=== PATIENT | male | born 1990 | race Caucasian/White ===

== ENCOUNTER 2017-02-08 16:08 | Observation (INO) ==
--- NOTE | 2017-02-08 16:26 | Emergency Department Note ---
Disposition Clinical Impression: Smoker, Suicidal ideation, Dysuria, Lesion of ear, Acute anxiety, Cocaine abuse , Marijuana abuse, Benzodiazepine abuse Disposition: Admitted As Inpatient Referrals: NO,PCP [Primary Care Provider] - Forms: ED Satisfaction Letter General Adult HPI - General Chief complaint: ED Psychiatric Symptoms Stated complaint: SI Time Seen by Provider: 02/08/17 16:26 Source: patient Limitations: no limitations - History of Present Illness HPI Narrative: 26-year-old male reports emergency department with concerns for suicidal ideation. The patient describes a history of ADHD and previous treatment for same. He describes multi drug abuse and Suboxone therapy. The patient lost his job today. He became more anxious and voiced suicidal ideation. He came in with his father for evaluation. There is no history of intentional overdose or acute self-injurious behavior. The patient denies any acute physical problems but describes a 10 year history of dysuria. The patient also reports some scaling about the ears which has been also been present chronically. The patient has no acute physical complaints. No chest pain shortness of breath abdominal pain vomiting diarrhea injuries fevers leg swelling or pain or passing out. No troubles walking talking hearing seeing or speaking. No skin rashes no genital swelling or discomfort. No external genital lesions. The patient is been able to void without difficulty. There is no history of headache neck stiffness rash or convulsion. The patient came in today for concerns regarding increasing anxiety and feeling like harming himself. He states he has never seen an ENT for his ears, he has never seen urology for his chronic dysuria, he reports he has been tested for STDs at his testing is been negative. The patient reports he has never seen a psychiatrist or psychologist but was treated for ADHD by his primary care physician years ago. Pain Scale: 0 - Related Data Home Medications Medication Instructions Recorded Confirmed No Known Home Drugs 04/09/16 06/29/16 Allergies Allergy/AdvReac Type Severity Reaction Status Date / Time No Known Allergies Allergy Verified 06/29/16 07:17 All systems ED: reviewed and negative except as stated. Past Medical History - Past Medical History Medical history: Reports: no medical history Surgical history: Reports: orthopedic, other Psychiatric history: Reports: no psych history - Social History Smoking Status: Current every day smoker Smokeless Tobacco Status: No Alcohol use: Reports: occasionally, recent Drug use: Reports: marijuana, prescription drug abuse Physical Exam - General Limitations: no limitations General appearance: alert, in no apparent distress - Head Head exam: atraumatic, normocephalic, normal inspection - Eye Eye exam: Present: normal appearance, PERRL, EOMI - ENT ENT exam: normal oropharynx, mucous membranes moist, TM's normal bilaterally, other (Lichenification and scaling around both ears. Some scabbing is noted, no lilly cellulitic change.) - Neck Neck exam: Present: normal inspection, full ROM, trachea midline. Absent: tenderness - Chest Chest inspection: Present: symmetric chest wall rise. Absent: tenderness - Respiratory Respiratory exam: Present: normal lung sounds bilaterally. Absent: respiratory distress, wheezes, accessory muscle use, prolonged expiratory phase - Cardiovascular Cardiovascular exam: Present: regular rate, normal rhythm, normal heart sounds - Abdominal Exam Abdominal exam: Present: soft, Non-Tender, normal bowel sounds. Absent: tenderness, distention, guarding, rebound, rigidity - Extremities Exam Extremities exam: Present: normal inspection, full ROM, normal capillary refill. Absent: tenderness, pedal edema, joint swelling, calf tenderness - Expanded Lower Extremity Exam Lower leg exam: Absent: Homans' sign Neurovascular/Tendon exam: Present: normal capillary refill. Absent: motor deficit, sensory deficit, tendon deficit, extremity cold to touch, pallor - Back Exam Back exam: Present: normal inspection, full ROM. Absent: tenderness, CVA tenderness (R), CVA tenderness (L), vertebral tenderness - Neurological Exam Neurological exam: Present: alert, oriented X3, CN II-XII intact. Absent: motor sensory deficit - Psychiatric Psychiatric exam: Present: normal affect, normal mood - Skin Skin exam: Present: warm, dry, intact, normal color. Absent: rash, cyanosis, diaphoresis, erythema, pallor, mottled Course Vital Signs Temperature 97.9 F 02/08/17 16:09 Pulse Rate 90 02/08/17 16:09 Respiratory Rate 15 02/08/17 16:09 Blood Pressure 123/76 02/08/17 16:09 O2 Sat by Pulse Oximetry 97 02/08/17 16:09 Temperature 97.9 F 02/08/17 16:09 Pulse Rate 90 02/08/17 16:09 Respiratory Rate 15 02/08/17 16:09 Blood Pressure 123/76 02/08/17 16:09 O2 Sat by Pulse Oximetry 97 02/08/17 16:09 Oxygen Delivery Oxygen Delivery Room Air Medical Decision Making - MDM Narrative Medical decision making narrative: The patient has been anxious and is feeling suicidal. His testing reveals multi drug abuse. The patient has had no chest pain or shortness of breath. Ativan was given by mouth. The patient appears to be medically stable. A psychiatric consult has been ordered. The counselors and psychiatric service recommend admission. They recommend a pink slip. The patient is agreeable to stay. His relative is supportive of this decision. - Lab Data Lab results reviewed: Yes I reviewed the patient's lab results. Result diagrams: 02/08/17 16:39 02/08/17 16:39 Lab Results 02/08/17 02/08/17 02/08/17 Range/Units 16:25 16:25 16:39 WBC 7.0 (4.3-11.1) K/mcL RBC 4.49 (4.19-5.50) M/mcL Hgb 13.9 (12.9-16.9) g/dL Hct 38.8 (37.5-50.1) % MCV 86.4 (83.0-100.0) fL MCH 31.0 (28.0-33.3) pg MCHC 35.8 H (31.6-35.5) g/dL RDW 11.9 (11.5-14.5) % Plt Count 228 (140-400) K/mcL MPV 8.4 L (9.4-12.4) fL Immature Gran % 0.1 (0-4) % Seg Neutrophils % 54.8 % Lymphocytes % 33.1 % Monocytes % 6.9 % Eosinophils % 4.4 % Basophils % 0.7 % Neutrophils # 3.8 (1.6-8.9) K/mcL Lymphocytes # 2.3 (0.6-4.6) K/mcL Monocytes # 0.5 (0.0-1.3) K/mcL Eosinophils # 0.3 (0.0-0.6) K/mcL Basophils # 0.1 (0.0-0.2) K/mcL Sodium (136-145) mEq/L Potassium (3.5-4.5) mEq/L Chloride (98-109) mEq/L Carbon Dioxide (19-29) mEq/L BUN (8-26) mg/dL Creatinine (0.72-1.25) mg/dL Est GFR ( Amer) (> 60) Est GFR (Non-Af Amer) (> 60) BUN/Creatinine Ratio (6-26) Glucose (70-99) mg/dL Calculated Osmolality (280-300) Calcium (8.6-10.8) mg/dL Urine Color Yellow (Yellow) Urine Clarity Clear (Clear) Urine pH 6.0 (5.0-8.0) pH Units Ur Specific [place] 1.023 (1.010-1.025) Urine Protein Negative (Neg-Trace) mg/dL Urine Glucose (UA) Normal (Normal) mg/dL Urine Ketones Negative (Negative) mg/dL Urine Blood Negative (Negative) Urine Nitrite Negative (Negative) Urine Bilirubin Negative (Negative) Urine Urobilinogen Normal (Normal) mg/dL Ur Leukocyte Esterase Negative (Negative) Salicylates (15-30) mg/dL Urine Opiates Screen Negative (Qydkgf=978) ng/mL Acetaminophen (10-30) mcg/mL Ur Barbiturates Screen Negative (Ljfjch=172) ng/mL Ur Phencyclidine Scrn Negative (Cutoff=25) ng/mL Ur Amphetamines Screen Negative (Adouqj=4676) ng/mL U Benzodiazepines Scrn Positive H (Ntdhyl=821) ng/mL Urine Cocaine Screen Positive H (Cutoff= 300) ng/mL U Marijuana (THC) Screen Positive H (Cutoff = 50) ng/mL Ethyl Alcohol (0-10) mg/dL 02/08/17 Range/Units 16:39 WBC (4.3-11.1) K/mcL RBC (4.19-5.50) M/mcL Hgb (12.9-16.9) g/dL Hct (37.5-50.1) % MCV (83.0-100.0) fL MCH (28.0-33.3) pg MCHC (31.6-35.5) g/dL RDW (11.5-14.5) % Plt Count (140-400) K/mcL MPV (9.4-12.4) fL Immature Gran % (0-4) % Seg Neutrophils % % Lymphocytes % % Monocytes % % Eosinophils % % Basophils % % Neutrophils # (1.6-8.9) K/mcL Lymphocytes # (0.6-4.6) K/mcL Monocytes # (0.0-1.3) K/mcL Eosinophils # (0.0-0.6) K/mcL Basophils # (0.0-0.2) K/mcL Sodium 138 (136-145) mEq/L Potassium 3.9 (3.5-4.5) mEq/L Chloride 106 (98-109) mEq/L Carbon Dioxide 23 (19-29) mEq/L BUN 11 (8-26) mg/dL Creatinine 0.85 (0.72-1.25) mg/dL Est GFR ( Amer) > 60 (> 60) Est GFR (Non-Af Amer) > 60 (> 60) BUN/Creatinine Ratio 13 (6-26) Glucose 118 H (70-99) mg/dL Calculated Osmolality 286 (280-300) Calcium 9.0 (8.6-10.8) mg/dL Urine Color (Yellow) Urine Clarity (Clear) Urine pH (5.0-8.0) pH Units Ur Specific [place] (1.010-1.025) Urine Protein (Neg-Trace) mg/dL Urine Glucose (UA) (Normal) mg/dL Urine Ketones (Negative) mg/dL Urine Blood (Negative) Urine Nitrite (Negative) Urine Bilirubin (Negative) Urine Urobilinogen (Normal) mg/dL Ur Leukocyte Esterase (Negative) Salicylates < 5.0 L (15-30) mg/dL Urine Opiates Screen (Gjpzri=981) ng/mL Acetaminophen < 1.0 L (10-30) mcg/mL Ur Barbiturates Screen (Tqjnqx=469) ng/mL Ur Phencyclidine Scrn (Cutoff=25) ng/mL Ur Amphetamines Screen (Ndmajw=0553) ng/mL U Benzodiazepines Scrn (Vtqade=560) ng/mL Urine Cocaine Screen (Cutoff= 300) ng/mL U Marijuana (THC) Screen (Cutoff = 50) ng/mL Ethyl Alcohol < 10 (0-10) mg/dL
[2017-02-08 16:38] LABS: Bilirubin,Urine Negative (Negative); Blood,Urine Negative (Negative); Clarity,Urine Clear (Clear); Color,Urine Yellow (Yellow); Glucose,Urine (UA) Normal (Normal); Ketones,Urine Negative (Negative); Leukocyte Esterase,Urine Negative (Negative); Nitrite,Urine Negative (Negative); Protein,Urine Negative (Neg-Trace); Specific Gravity,Urine 1.023 (1.010-1.025); Urobilinogen,Urine Normal (Normal)
[2017-02-08 16:43] LABS: Amphetamine Screen,Urine Negative ng/mL (Cutoff=1000); Barbiturate Screen,Urine Negative ng/mL (Cutoff=200); Benzodiazepines Screen,Urine Positive ng/mL (Cutoff=200); Cannabinoid Screen,Urine Positive ng/mL (Cutoff = 50); Cocaine Screen,Urine Positive ng/mL (Cutoff= 300); Opiate Screen,Urine Negative ng/mL (Cutoff=300); Phencyclidine Screen,Urine Negative ng/mL (Cutoff=25)
[2017-02-08 16:48] LABS: Basophils # 0.1 K/mcL (0.0-0.2); Basophils % 0.7 %; Eosinophils # 0.3 K/mcL (0.0-0.6); Eosinophils % 4.4 %; Hematocrit 38.8 % (37.5-50.1); Hemoglobin 13.9 g/dL (12.9-16.9); Immature Granulocytes % 0.1 % (0-4); Lymphocytes # 2.3 K/mcL (0.6-4.6); Lymphocytes % 33.1 %; Mean Corpuscular HGB Conc 35.8 g/dL (31.6-35.5); Mean Corpuscular Volume 86.4 fL (83.0-100.0); Mean Platelet Volume 8.4 fL (9.4-12.4); Monocytes # 0.5 K/mcL (0.0-1.3); Monocytes % 6.9 %; Neutrophils # 3.8 K/mcL (1.6-8.9); Platelet Count 228 K/mcL (140-400); Red Blood Count 4.49 M/mcL (4.19-5.50); Red Cell Distribution Width 11.9 % (11.5-14.5); Segmented Neutrophils % 54.8 %
[2017-02-08 17:02] LABS: Acetaminophen < 1.0 mcg/mL (10-30); BUN/Creatinine Ratio 13 (6-26); Blood Urea Nitrogen 11 mg/dL (8-26); Carbon Dioxide 23 mEq/L (19-29); Chloride 106 mEq/L (98-109); Ethanol < 10 mg/dL (0-10); Glucose 118 mg/dL (70-99); Osmolality,Calculated 286 (280-300); Potassium 3.9 mEq/L (3.5-4.5); Salicylate < 5.0 mg/dL (15-30); Sodium 138 mEq/L (136-145); eGFR For African Americans > 60 (> 60); eGFR For Non-African Americans > 60 (> 60)
[2017-02-08] MEDS ORDERED: *HR* LORazepam 1 MG TABLET PO ONE (17:05)
[2017-02-08] MEDS ORDERED: Nicotine 21 MG PATCH.TD24 TD ONE (19:06)
[2017-02-08] MEDS ORDERED: Ibuprofen 400 MG TABLET PO PRN (21:00)
[2017-02-08] MEDS ORDERED: MOM Conc 10 ML UD.LIQ PO PRN (21:00)
[2017-02-08] MEDS ORDERED: *HR* LORazepam 1 MG TABLET PO PRN (21:00)
[2017-02-08] MEDS ORDERED: hydrOXYzine pamoate 25 MG CAPSULE PO PRN (21:00)
[2017-02-08] MEDS ORDERED: traZODone 50 MG TABLET PO PRN (21:00)
[2017-02-08] MEDS ORDERED: *HR* LORazepam 2 MG/ML VIAL IM PRN (21:00)
[2017-02-08] MEDS ORDERED: Mag Hydrox/Al Hydrox/Simeth 30 ML UDC PO PRN (21:00)
[2017-02-08] MEDS ORDERED: Haloperidol Lactate 5 MG/ML VIAL IM PRN (21:00)
[2017-02-09] MEDS ORDERED: Nicotine 21 MG PATCH.TD24 TD SCH (09:00)
[2017-02-09 09:29] VITALS: BP 109/73
--- NOTE | 2017-02-09 13:07 | Discharge Summary ---
Date of Encounter: 02/09/17 Time of Encounter: 12:30 History of Present Illness Chief complaint: Suicidal ideation Admitted From: Emergency Dept History of Present Illness: Mr. Cardoza is a 26 year old male admitted from the emergency department for suicidal ideation. Patient is admitted on observation status to evaluate suicidal ideation. Patient states he lost his job due to poor attendance, also he was dependent on drugs including THC, cocaine and benzodiazepine. UDS was positive for THC, cocaine and benzodiazepine. Patient denies any past psychiatric history or treatment except treatment for ADHD when he was 10 years old. Patient denies any past suicide attempts and denies any intent for self- harm. She believes this will disappoints his children, he has 2 children age 6 years and 6 months. Patient reports family history positive for depression and substance abuse and he wants to get help to recover and stays sober. Past Med Surg Social Fam HX - Past Medical History Medical history: no medical history - Past Psychiatric History Psychiatric history: Reports: no psych history - Past Surgical History Surgical History: orthopedic, other - Social History Smoking Status: Current every day smoker Smokeless Tobacco Status: No Alcohol use: occasionally, recent Drug use: marijuana, prescription drug abuse Medications - Discharge Medications No Known Home Drugs 04/09/16 [History] Allergies No Known Allergies Allergy (Verified 06/29/16 07:17) Review of Systems Psychiatric: Reports: suicidal ideation Mental Status Exam - Mental Status Exam Patient orientation: Yes Person, Yes Time, Yes Place Level of alertness: Alert Patient appearance: Appropriate, Unkempt Behavior: calm, cooperative, nervous Psychomotor activity: Normal Eye contact: Maintains Eye Contact Mood description: Euthymic/stable, Anxious Affect description: congruent with mood, full range Speech pattern: Normal rate, Normal rhythm, Normal tone Speech Volume: Normal Thought process: Linear, Goal Oriented Thought Content: No Suicidal ideation, No Homicidal ideation, No Overt delusions Perceptual Disturbances: No Auditory hallucinations, No Visual hallucinations Judgment: Limited Insight: Partial Results - Vital Signs Vital signs: Temp Pulse Resp BP Pulse Ox 98.3 F 70 16 109/73 97 02/09/17 09:00 02/09/17 09:00 02/09/17 09:00 02/09/17 09:00 02/08/17 16:09 - Labs Labs: Laboratory Last Values WBC 7.0 K/mcL (4.3-11.1) 02/08/17 16:39 RBC 4.49 M/mcL (4.19-5.50) 02/08/17 16:39 Hgb 13.9 g/dL (12.9-16.9) 02/08/17 16:39 Hct 38.8 % (37.5-50.1) 02/08/17 16:39 MCV 86.4 fL (83.0-100.0) 02/08/17 16:39 MCH 31.0 pg (28.0-33.3) 02/08/17 16:39 MCHC 35.8 g/dL (31.6-35.5) H 02/08/17 16:39 RDW 11.9 % (11.5-14.5) 02/08/17 16:39 Plt Count 228 K/mcL (140-400) 02/08/17 16:39 MPV 8.4 fL (9.4-12.4) L 02/08/17 16:39 Immature Gran % 0.1 % (0-4) 02/08/17 16:39 Seg Neutrophils % 54.8 % 02/08/17 16:39 Lymphocytes % 33.1 % 02/08/17 16:39 Monocytes % 6.9 % 02/08/17 16:39 Eosinophils % 4.4 % 02/08/17 16:39 Basophils % 0.7 % 02/08/17 16:39 Neutrophils # 3.8 K/mcL (1.6-8.9) 02/08/17 16:39 Lymphocytes # 2.3 K/mcL (0.6-4.6) 02/08/17 16:39 Monocytes # 0.5 K/mcL (0.0-1.3) 02/08/17 16:39 Eosinophils # 0.3 K/mcL (0.0-0.6) 02/08/17 16:39 Basophils # 0.1 K/mcL (0.0-0.2) 02/08/17 16:39 Sodium 138 mEq/L (136-145) 02/08/17 16:39 Potassium 3.9 mEq/L (3.5-4.5) 02/08/17 16:39 Chloride 106 mEq/L (98-109) 02/08/17 16:39 Carbon Dioxide 23 mEq/L (19-29) 02/08/17 16:39 BUN 11 mg/dL (8-26) 02/08/17 16:39 Creatinine 0.85 mg/dL (0.72-1.25) 02/08/17 16:39 Est GFR ( Amer) > 60 (> 60) 02/08/17 16:39 Est GFR (Non-Af Amer) > 60 (> 60) 02/08/17 16:39 BUN/Creatinine Ratio 13 (6-26) 02/08/17 16:39 Glucose 118 mg/dL (70-99) H 02/08/17 16:39 Calculated Osmolality 286 (280-300) 02/08/17 16:39 Calcium 9.0 mg/dL (8.6-10.8) 02/08/17 16:39 Urine Color Yellow (Yellow) 02/08/17 16:25 Urine Clarity Clear (Clear) 02/08/17 16:25 Urine pH 6.0 pH Units (5.0-8.0) 02/08/17 16:25 Ur Specific [place] 1.023 (1.010-1.025) 02/08/17 16:25 Urine Protein Negative mg/dL (Neg-Trace) 02/08/17 16:25 Urine Glucose (UA) Normal mg/dL (Normal) 02/08/17 16:25 Urine Ketones Negative mg/dL (Negative) 02/08/17 16:25 Urine Blood Negative (Negative) 02/08/17 16:25 Urine Nitrite Negative (Negative) 02/08/17 16:25 Urine Bilirubin Negative (Negative) 02/08/17 16:25 Urine Urobilinogen Normal mg/dL (Normal) 02/08/17 16:25 Ur Leukocyte Esterase Negative (Negative) 02/08/17 16:25 Salicylates < 5.0 mg/dL (15-30) L 02/08/17 16:39 Urine Opiates Screen Negative ng/mL (Rpofno=007) 02/08/17 16:25 Acetaminophen < 1.0 mcg/mL (10-30) L 02/08/17 16:39 Ur Barbiturates Screen Negative ng/mL (Aixlfd=165) 02/08/17 16:25 Ur Phencyclidine Scrn Negative ng/mL (Cutoff=25) 02/08/17 16:25 Ur Amphetamines Screen Negative ng/mL (Bzjgwn=1978) 02/08/17 16:25 U Benzodiazepines Scrn Positive ng/mL (Rfuied=913) H 02/08/17 16:25 Urine Cocaine Screen Positive ng/mL (Cutoff= 300) H 02/08/17 16:25 U Marijuana (THC) Screen Positive ng/mL (Cutoff = 50) H 02/08/17 16:25 Ethyl Alcohol < 10 mg/dL (0-10) 02/08/17 16:39 Diagnosis - Discharge Diagnosis (1) Suicidal ideation Status: Acute (2) Cocaine abuse Status: Acute (3) Marijuana abuse Status: Acute Assessment and Plan - Patient/Caregiver Discharge Instructions Activity: resume usual activities as tolerated Diet: regular diet - Follow up Plan Follow up with: [facility] [Outside] - 02/18/17 1:00 pm (The above appointment is with Maria Dolores Rodríguez, counselor. When you come to your first appointment, you will have an orientation to the agency and you will meet with a counselor. Please bring the following with you to your first visit to the clinic: 1) proof of household income (two consecutive pay stubs, social security award letter, bank statement, statement letter from [facility], child support statement, IRS 1040 or W2 form, or a statement from the person who financially supports you stating they help provide for your basic needs), 2) proof of residency (drivers license, a piece of mail showing your address, a statement from person you live with verifying you live at their address), 3) your social security card, 4) photo ID, 5) your insurance card (if you have commercial insurance you must call to obtain a prior authorization number before you arrive to your first appointment) and 6) if you do not have insurance but have applied for Medicaid, please bring verification you have applied. This is the first available appointment. You may contact the office regularly to check for cancellations that may allow you to be seen sooner. ) Lesetr Espinoza, BHAVNA [Physician Transfer Engineer] - 02/16/17 1:00 pm (The above appointment is with Lester Espinoza's associate, Nadia Mcfarlane, at [facility]. This appointment is to establish you with a primary care provider. Your needs for psychiatric medication and/or Vivitrol will be assessed for and treated as well. Please arrive 15 minutes early to complete paperwork. Please bring your insurance card, photo ID and list of current medications to your first appointment. This is the first available appointment. You may contact the office regularly to check for cancellations that may allow you to be seen sooner. ) Functional capacity at discharge: independent ambulation Overall status at discharge: Stable Disposition: Home, Self-Care Provider Date of admission: 02/08/17 19:27 Primary care physician: PCP NO Discharging clinician: Jonah Overton [facility] Hospital Course Hospital course: Mr. Cardoza is a 26 year old male admitted for evaluation of suicidal ideation. Patient has been stressed out by loss of his job and dependence on drugs including cocaine and marijuana. Patient denied any intent to harm himself or kill himself and was more interested in getting help for his substance abuse and dependence and wants to be able to keep his job to support his family. Patient evaluation was negative for admission criteria for hospitalization in a psychiatric unit. Discharge plan and follow-up was completed by social problems specialist includes referral to dual diagnosis facility to address patient's mental health and substance abuse issues. On discharge patient is medically stable and denies any suicidal ideation and looking forward to start his treatment as planned in his discharge. - Time Spent with Patient Total time spent providing and/or coordinating discharge services: Greater than 30 minutes Procedures - Procedures Procedures: Medication Management, Crisis Stabilization, Supportive Therapy, Group Therapy, Psychoeducational Therapy Quality - Multiple Antipsychotics Patient discharged on 2 or more antipsychotic medications: No
== END 2017-02-09 14:20 | disposition home or self-care (01) ==
LOC: EMEROO 16:08 → 1ANU 16:08
PROVIDERS: ADMIT Psychiatry & Neurology Psychiatry; ATTEND Psychiatry & Neurology Psychiatry